=== PATIENT | male | born 1945 | race Caucasian/White ===

== ENCOUNTER → 2020-03-20 | Outpatient (CLI) | payer OTHER ==
[~2020-03-20] MED LIST: ALOG25TA2 PO; AMLO10TA8 PO; ATOR40TA78 PO; GLIM4TAB8 PO; LEVO175T5 PO; LISI40TA PO; METF10007 PO; PREG100C PO; TAMS-11 PO
[2020-03-20 09:43] LABS: ALBUMIN 3.6 g/dL (3.4-5.0); ANION GAP 6 mmol/L (5-15); CALCIUM 8.9 mg/dL (8.5-10.1); CHLORIDE 105 mmol/L (98-107)
[2020-03-20 09:47] LABS: ALANINE AMINOTRANSFERASE 24 U/L (12-78); ALKALINE PHOSPHATASE 143 U/L (45-117); BILIRUBIN,TOTAL 0.9 mg/dL (0.2-1.0); CREATININE 0.99 mg/dL (0.7-1.3); TOTAL PROTEIN 7.7 g/dL (6.4-8.2)
== END | disposition home or self-care (01) ==
LOC: STAR 07:40
PROVIDERS: ATTEND Orthopaedic Surgery
DX: Z01.818 Encounter for other preprocedural examination (principal); M75.41 Impingement syndrome of right shoulder
CPT/HCPCS: 36415; 80053; 93005

== ENCOUNTER 2020-03-27 06:58 | Day surgery (SDC) | payer OTHER ==
[~2020-03-27] VITALS: Ht 188 cm; Wt 106.6 kg
[~2020-03-27 06:58] MED LIST changes: +BUPIVACAINE/PF 0.25% ONE; +EPINEPHRINE 1 MG/ML, 1ML ONE; +ROPIvacaine/PF 0.5%, 30 ML ONE
[2020-03-27] MEDS ORDERED: LACTATED RINGERS 1,000 ML IV SCH (07:25)
[2020-03-27 07:30] VITALS: BP 152/80
[2020-03-27] MEDS ORDERED: CHLORHEXIDINE 15 ML UDC MM ONE (07:30)
[2020-03-27] MEDS ORDERED: LORA-702 PO (07:36)
[2020-03-27] MEDS ORDERED: BUPIVACAINE/PF 0.25% ONE (07:50)
[2020-03-27] MEDS ORDERED: MIDAZOLAM 1 MG/ML, 2ML ONE (07:50)
[2020-03-27] MEDS ORDERED: FENTANYL PF 100 MCG/2ML ONE ×2 (07:50→09:32)
[2020-03-27] MEDS ORDERED: PHENYLEPHRINE 10 MG/ML ONE (08:28)
[2020-03-27] MEDS ORDERED: SUCCINYLCHOLINE 20 MG/ML, 10ML ONE (08:28)
[2020-03-27] MEDS ORDERED: BUPIVACAINE/PF-EPI 0.25% 1:200K INFIL ONE (08:55)
[2020-03-27] MEDS ORDERED: DEXAMETHASONE 4 MG/ML, 1ML ONE (09:19)
[2020-03-27] MEDS ORDERED: LIDOCAINE-MPF 2% ,5ML ONE (09:19)
[2020-03-27] MEDS ORDERED: ONDANSETRON 2MG/ML, 2ML ONE (09:19)
[2020-03-27] MEDS ORDERED: CEFAZOLIN 1,000 MG ONE (09:19)
[2020-03-27] MEDS ORDERED: PROPOFOL 10 MG/ML, 20ML ONE (09:19)
[2020-03-27] MEDS ORDERED: MEPERIDINE/PF 25MG/0.5ML IVPush PRN (09:30)
[2020-03-27] MEDS ORDERED: PROMETHAZINE 25 MG/ML, 1ML IVPush PRN (09:30)
[2020-03-27] MEDS ORDERED: LABETALOL 5MG/ML, 20ML IV PRN (09:30)
[2020-03-27] MEDS ORDERED: FENTANYL PF 100 MCG/2ML IV PRN (09:30)
[2020-03-27] MEDS ORDERED: hydrALAzine 20 MG/ML, 1ML IV PRN (09:30)
[2020-03-27] MEDS ORDERED: LORazepam 2 MG/ML, 1ML IVPush PRN (09:30)
[2020-03-27] MEDS ORDERED: OXYcodone 5 MG/5 ML ORAL.SOL UDC PO PRN (09:30)
[2020-03-27] MEDS ORDERED: HYDROmorphone 1 MG/ML, 1ML INJ IVPush PRN (09:30)
[2020-03-27] MEDS ORDERED: ALBUTEROL SULFATE 2.5 MG/3 ML NPPB PRN (09:30)
[2020-03-27] MEDS ORDERED: ACETAMINOPHEN 325 MG TABLET PO PRN (09:30)
== END 2020-03-27 12:40 | disposition home or self-care (01) ==
LOC: OUT 06:58
PROVIDERS: ATTEND Orthopaedic Surgery
DX: S46.011A Strain of muscle(s) and tendon(s) of the rotator cuff of right shoulder, initial encounter (principal); Z20.828 Contact with and (suspected) exposure to other viral communicable diseases; G89.18 Other acute postprocedural pain; S46.111A Strain of muscle, fascia and tendon of long head of biceps, right arm, initial encounter; S43.431A Superior glenoid labrum lesion of right shoulder, initial encounter; M75.01 Adhesive capsulitis of right shoulder; M75.41 Impingement syndrome of right shoulder; M94.211 Chondromalacia, right shoulder; E11.9 Type 2 diabetes mellitus without complications; I10 Essential (primary) hypertension; E78.5 Hyperlipidemia, unspecified; E66.9 Obesity, unspecified; N40.0 Benign prostatic hyperplasia without lower urinary tract symptoms; F17.200 Nicotine dependence, unspecified, uncomplicated; Z79.84 Long term (current) use of oral hypoglycemic drugs; Z79.890 Hormone replacement therapy; Z79.899 Other long term (current) drug therapy; Z88.2 Allergy status to sulfonamides; Z96.651 Presence of right artificial knee joint; Z98.1 Arthrodesis status; Z82.61 Family history of arthritis; V49.88XA Car occupant (driver) (passenger) injured in other specified transport accidents, initial encounter; Y93.89 Activity, other specified; Y92.89 Other specified places as the place of occurrence of the external cause; Y99.8 Other external cause status
CPT/HCPCS: 29823; 29826; 29827; 36415; 64415; 82962; 87635; C1713; J0171; J0330; J0690; J1100; J2250; J2370; J2405; J2704; J3010; J3490; J7120; J2795